=== PATIENT | female | born 1945 | race Caucasian/White ===

== ENCOUNTER 2017-04-08 08:00 | Outpatient (CLI) | payer MEDICARE, OTHER | END 2017-04-08 08:01 | disposition home or self-care (01) | LOC: BICMRI 08:00 | PROVIDERS: ATTEND Neurological Surgery | DX: M51.14 Intervertebral disc disorders with radiculopathy, thoracic region (principal); M47.816 Spondylosis without myelopathy or radiculopathy, lumbar region; M51.44 Schmorl's nodes, thoracic region | CPT/HCPCS: 72146 ==

== ENCOUNTER 2018-04-26 12:47 | Outpatient (CLI) | payer MEDICARE, OTHER ==
--- NOTE | 2018-04-26 14:38 | CT ---
CT CERVICAL SPINE NONCONTRAST: INDICATIONS: Cervical radiculopathy. FINDINGS: There is a partially imaged dorsal column stimulator, ascending from the thoracic spine and terminati ng posteriorly within the vertebral canal, at the C5 level. There is degenerative sclerosis of the C 4 and C5 vertebral bodies with prominent endplate degenerative change, disk space narrowing, and tiki inal osteophyte formation. Disk space calcification of the C3-C4 level is present. There is mild re versal of the normal cervical curvature centered at the C3-C4 level. No acute malalignment is eviden t. The craniocervical junction is intact. No high-grade osseous compromise of the central canal at the C1-C2 or C2-C3 levels. There is multilevel degenerative bilateral facet hypertrophy. C3-C4: Uncinate process hypertrophy, along with facet joint hypertrophy and disk osteophyte complex, results in mild osseous compromise of the central canal, moderate left and mild right osseous neural foraminal narrowing. C4-C5: There is a disk osteophyte, producing moderate central canal stenosis on the basis of osseous compromise, and moderate to severe osseous narrowing of each neural foramen, when combined with bila teral facet hypertrophy and uncinate process hypertrophy. C5-C6: Disk osteophyte complex, when combined with bilateral uncinate process and facet hypertrophy, results in mild osseous compromise of the central canal, moderate to severe left and moderate right osseous compromise of the neural foramina. C6-C7: Mild osseous narrowing of the central canal and moderate biforaminal stenosis on the basis of disk osteophyte and uncinate process hypertrophy. C7-T1: No high-grade osseous compromise of the central canal and neural foramina. Streak artifact from indwelling spinal stimulator does limit visualization. Incidental note of interstitial lung disease at the lung apices. There is atherosclerosis. IMPRESSION: Moderate multilevel degenerative changes throughout the cervical spine, as delineated above. POS: [facility]
== END 2018-04-26 12:48 | disposition home or self-care (01) ==
LOC: BICCT 12:47
PROVIDERS: ATTEND Specialist
DX: M47.22 Other spondylosis with radiculopathy, cervical region (principal)
CPT/HCPCS: 72125

== ENCOUNTER 2019-02-08 14:04 | Outpatient (CLI) | payer MEDICARE, OTHER ==
--- NOTE | 2019-02-08 14:48 | MMO ---
Bilateral MAMMO Bilat Screen [facility]. CLINICAL HISTORY: Patient is 73 years old and is seen for screening. The patient has the following family history of breast cancer: sister, at age 62. The patient has no personal history of cancer. VIEWS: The views performed were: bilateral craniocaudal with tomosynthesis and bilateral mediolateral oblique with tomosynthesis. FILMS COMPARED: The present examination has been compared to prior imaging studies performed at [facility] on 07/01/2011, 06/28/2013, 07/26/2014 and 08/08/2015. This study has been interpreted with the assistance of computer-aided detection. MAMMOGRAM FINDINGS: There are scattered fibroglandular densities. There are no suspicious masses, suspicious calcifications, or new areas of architectural distortion. IMPRESSION: THERE IS NO MAMMOGRAPHIC EVIDENCE OF MALIGNANCY. A ROUTINE FOLLOW-UP MAMMOGRAM IN 1 YEAR IS RECOMMENDED. THE RESULTS OF THIS EXAM WERE SENT TO THE PATIENT. ACR BI-RADS Category 1 - Negative MAMMOGRAPHY NOTE: 1. A negative mammogram report should not delay a biopsy if a dominant of clinically suspicious mass is present. 2. Approximately 10% to 15% of breast cancers are not detected by mammography. 3. Adenosis and dense breasts may obscure an underlying neoplasm. Reported by: CAROLINE WHITTEN MD Electonically Signed: [id number]
== END 2019-02-08 14:05 | disposition home or self-care (01) ==
LOC: BICMAMMO 14:04
PROVIDERS: ATTEND Family Medicine
DX: Z12.31 Encounter for screening mammogram for malignant neoplasm of breast (principal); Z80.3 Family history of malignant neoplasm of breast
CPT/HCPCS: 77063; 77067

== ENCOUNTER 2020-02-12 13:39 | Outpatient (CLI) | payer MEDICARE, OTHER ==
--- NOTE | 2020-02-12 14:14 | MMO ---
Bilateral MAMMO Bilat Screen [facility]. CLINICAL HISTORY: Patient is 74 years old and is seen for screening. The patient has the following family history of breast cancer: sister, at age 62. The patient has no personal history of cancer. VIEWS: The views performed were: bilateral craniocaudal with tomosynthesis and bilateral mediolateral oblique with tomosynthesis. FILMS COMPARED: The present examination has been compared to prior imaging studies performed at [facility] on 06/28/2013, 07/26/2014, 08/08/2015 and 02/08/2019. This study has been interpreted with the assistance of computer-aided detection. MAMMOGRAM FINDINGS: The breasts are almost entirely fat. There are stable benign appearing calcifications seen in both breasts. There are also vascular calcifications. There are no suspicious masses, suspicious calcifications, or new areas of architectural distortion. IMPRESSION: THERE IS NO MAMMOGRAPHIC EVIDENCE OF MALIGNANCY. A ROUTINE FOLLOW-UP MAMMOGRAM IN 1 YEAR IS RECOMMENDED. THE RESULTS OF THIS EXAM WERE SENT TO THE PATIENT. ACR BI-RADS Category 2 - Benign finding MAMMOGRAPHY NOTE: 1. A negative mammogram report should not delay a biopsy if a dominant of clinically suspicious mass is present. 2. Approximately 10% to 15% of breast cancers are not detected by mammography. 3. Adenosis and dense breasts may obscure an underlying neoplasm. Reported by: CAROLINE WHITTEN MD Electonically Signed: [id number]
== END 2020-02-12 13:40 | disposition home or self-care (01) ==
LOC: BICMAMMO 13:39
PROVIDERS: ATTEND Family Medicine
DX: Z12.31 Encounter for screening mammogram for malignant neoplasm of breast (principal); Z80.3 Family history of malignant neoplasm of breast
CPT/HCPCS: 77063; 77067

== ENCOUNTER 2020-10-18 16:25 | Outpatient (CLI) | payer MEDICARE, OTHER ==
[2020-10-18 17:32] LABS: #Eosinphils 0.1 10x3/uL (0.0-0.5); #Monocytes 0.7 10x3/uL (0.0-1.1); #Neutrophils 3.7 10x3/uL (1.5-8.4); %Basophils 0.6 % (0.0-2.0); %Eosinophils 2.2 % (0.0-6.0); %Lymphocytes 26.2 % (18.0-47.0); %Monocytes 11.3 % (0.0-10.0); %Neutrophils 59.2 % (40.0-75.0); Hemoglobin 11.5 g/dL (12.0-15.5); Mean Corpuscular HGB CONC 31.6 g/dL (32.0-36.0); Mean Corpuscular Hemoglobin 29.6 pg (27.0-33.0); Mean Corpuscular Volume 93.6 fl (81.6-98.3); Mean Platelet Volume 10.3 fl (7.4-10.4); Platelet Count 148 10x3/uL (150-450); RBC Distribution Width 14.9 % (11.5-14.5); Red Blood Cell (RBC) Count 3.89 10x6/uL (3.90-5.03); White Blood Cell (WBC) Count 6.3 10x3/uL (3.5-10.5)
[2020-10-18 17:37] LABS: Anion Gap 14 mmol/L (10-20); BUN (Urea Nitrogen) 19 mg/dL (9.8-20.1); Calc. Creatinine Clearance 0 mL/min (70-130); Calcium 9.2 mg/dL (7.8-10.44); Carbon Dioxide 24 mmol/L (23-31); Chloride 103 mmol/L (98-107); Glucose 86 mg/dL (83-110); Potassium 4.2 mmol/L (3.5-5.1); Sodium 137 mmol/L (136-145)
== END 2020-10-18 16:26 | disposition home or self-care (01) ==
LOC: LABBT 16:25
PROVIDERS: ATTEND Internal Medicine Cardiovascular Disease
DX: Z01.812 Encounter for preprocedural laboratory examination (principal); I25.10 Atherosclerotic heart disease of native coronary artery without angina pectoris
CPT/HCPCS: 80048; 85025

== ENCOUNTER 2021-02-11 12:09 | Emergency (ER) | payer OTHER, MEDICARE | END 2021-02-11 14:28 | disposition home or self-care (01) | LOC: ERS 12:09 | DX: S30.0XXA Contusion of lower back and pelvis, initial encounter (principal); I10 Essential (primary) hypertension; I25.2 Old myocardial infarction; W21.89XA Striking against or struck by other sports equipment, initial encounter; Y93.54 Activity, bowling; Y92.39 Other specified sports and athletic area as the place of occurrence of the external cause; Z79.82 Long term (current) use of aspirin; Z79.899 Other long term (current) drug therapy; Z95.5 Presence of coronary angioplasty implant and graft | CPT/HCPCS: 72170 ==

== ENCOUNTER 2021-02-12 13:27 | Outpatient (CLI) | payer MEDICARE, OTHER | END 2021-02-12 13:28 | disposition home or self-care (01) | LOC: BICMAMMO 13:27 | PROVIDERS: ATTEND Family Medicine | DX: Z12.31 Encounter for screening mammogram for malignant neoplasm of breast (principal); Z80.3 Family history of malignant neoplasm of breast | CPT/HCPCS: 77063; 77067 ==

== ENCOUNTER 2021-03-27 10:52 | Outpatient (CLI) | payer MEDICARE, OTHER | END 2021-03-27 10:53 | disposition home or self-care (01) | LOC: BICMAMMO 10:52 | PROVIDERS: ATTEND Family Medicine | DX: Z13.820 Encounter for screening for osteoporosis (principal); Z78.0 Asymptomatic menopausal state | CPT/HCPCS: 77080 ==

== ENCOUNTER 2022-03-24 15:25 | Outpatient (CLI) | payer MEDICARE, OTHER | END 2022-03-24 15:26 | disposition home or self-care (01) | LOC: BICMAMMO 15:25 | PROVIDERS: ATTEND Family Medicine | DX: Z12.31 Encounter for screening mammogram for malignant neoplasm of breast (principal); Z80.3 Family history of malignant neoplasm of breast | CPT/HCPCS: 77063; 77067 ==

== ENCOUNTER 2022-05-20 10:32 | Outpatient (CLI) | payer MEDICARE, OTHER | END 2022-05-20 10:33 | disposition home or self-care (01) | LOC: BICCT 10:32 | PROVIDERS: ATTEND Nurse Practitioner Family | DX: M47.24 Other spondylosis with radiculopathy, thoracic region (principal) | CPT/HCPCS: 72128 ==

== ENCOUNTER 2023-10-06 11:06 | Outpatient (CLI) | payer MEDICARE, OTHER | END 2023-10-06 11:07 | disposition home or self-care (01) | LOC: BICRAD 11:06 | PROVIDERS: ATTEND Family Medicine | DX: R06.00 Dyspnea, unspecified (principal); R91.8 Other nonspecific abnormal finding of lung field | CPT/HCPCS: 71046 ==

== ENCOUNTER 2023-10-08 08:27 | Outpatient (CLI) | payer MEDICARE, OTHER | END 2023-10-08 08:28 | disposition home or self-care (01) | LOC: BICCT 08:27 | PROVIDERS: ATTEND Family Medicine | DX: R91.8 Other nonspecific abnormal finding of lung field (principal); J84.10 Pulmonary fibrosis, unspecified | CPT/HCPCS: 71260; 82565 ==

== ENCOUNTER 2024-01-14 09:49 | Outpatient (CLI) | payer MEDICARE, OTHER | END 2024-01-14 09:50 | disposition home or self-care (01) | LOC: MRI 09:49 | PROVIDERS: ATTEND Nurse Practitioner Family | DX: M48.062 Spinal stenosis, lumbar region with neurogenic claudication (principal); M47.815 Spondylosis without myelopathy or radiculopathy, thoracolumbar region; M51.35 Other intervertebral disc degeneration, thoracolumbar region; M48.05 Spinal stenosis, thoracolumbar region; M47.816 Spondylosis without myelopathy or radiculopathy, lumbar region; M51.369 Other intervertebral disc degeneration, lumbar region without mention of lumbar back pain or lower extremity pain; M51.379 Other intervertebral disc degeneration, lumbosacral region without mention of lumbar back pain or lower extremity pain; M48.07 Spinal stenosis, lumbosacral region; M47.817 Spondylosis without myelopathy or radiculopathy, lumbosacral region | CPT/HCPCS: 72148 ==

== ENCOUNTER 2024-12-26 13:40 | Outpatient (CLI) | payer MEDICARE, OTHER | END 2024-12-26 13:41 | disposition home or self-care (01) | LOC: RAD 13:40 | PROVIDERS: ATTEND Internal Medicine Critical Care Medicine | DX: R06.00 Dyspnea, unspecified (principal); J84.10 Pulmonary fibrosis, unspecified | CPT/HCPCS: 71046 ==